=== PATIENT | male | born 1985 | race Caucasian/White ===

== ENCOUNTER 2016-07-26 08:18 | Emergency (ER) | payer OTHER ==
[~2016-07-26] VITALS: Ht 160 cm; Wt 67.6 kg
[~2016-07-26 08:18] MED LIST: OMEP20CA9 PO
[2016-07-26 08:24] VITALS: Ht 160 cm; Wt 67.6 kg
--- NOTE | 2016-07-26 09:41 | RADRPT ---
PROCEDURE: XR Left Ankle CLINICAL INDICATION: Fall TECHNIQUE: Standard 3 view radiographs were submitted. COMPARISON: None FINDINGS: Osseous structures: Well mineralized and intact with no fracture or destructive process identified. Joint spaces: Well maintained with no significant erosions or spurring evident. Soft tissues: Appear unremarkable. IMPRESSION: Unremarkable left ankle. Physician Danica Date Time Electronically viewed and signed by Trace Sandoval Physician on 07/26/2016 09:40 RH/
--- NOTE | 2016-07-26 09:41 | RADRPT ---
PROCEDURE: XR Left Tibia-Fibula CLINICAL INDICATION: Fall TECHNIQUE: AP and lateral radiographs were submitted COMPARISON: None FINDINGS: Osseous structures: appear well mineralized and intact with no fracture or destructive process iden tified. Joint spaces: are well maintained, with no significant spurring, erosion or joint effusion evident. Soft tissues: appear unremarkable. IMPRESSION: Unremarkable left tibia-fibula study. Physician Danica Date Time Electronically viewed and signed by Trace Sandoval Physician on 07/26/2016 09:40 RH/
[2016-07-26] MEDS ORDERED: IBUP-1542 PO (09:54)
--- NOTE | 2016-07-26 10:05 | ERD ---
ER Documentation Chief Complaint Date/Time DATE: 07/26/16 TIME: 10:02 Chief Complaint LEFT ANKLE PAIN HPI This is a 30 year old male that presents to the ER with left lower leg pain after he got his leg stuck between a bleacher and fell forward. Patient states that this happened 2 days ago. He has been trying ice and he is disrupted however the pain is severe. He has not taken any medication. Patient denies any numbness or tingling. Pain is severe and constant. It is located directly above his ankle. ROS 12 point review of systems was done, all negative except per HPI. Medications Home Meds Active Scripts Ibuprofen* (Motrin*) 600 Mg Tab, 600 MG PO Q6, #30 TAB Prov:GRODON KRISHNA 07/26/16 Omeprazole* (Prilosec*) 20 Mg Capsule., 20 MG PO DAILY, #30 CAP Prov:EDITH VALVERDE PA-C 03/02/15 PMhx/Soc Medical and Surgical Hx: pt denies Medical Hx, pt denies Surgical Hx Hx Alcohol Use: Yes Hx Substance Use: Yes Hx Tobacco Use: No Smoking Status: Never smoker Physical Exam Vitals Vital Signs Date Time Temp Pulse Resp B/P Pulse Ox O2 Delivery O2 Flow Rate FiO2 07/26/16 08:24 98.1 86 18 132/76 99 Physical Exam GENERAL: The patient is well developed and appropriate for usual state of health , in no apparent distress. HEENT: Atraumatic. CHEST: Clear to auscultation bilaterally. There are no rales, wheezes or rhonchi. HEART: Regular rate and rhythm. No murmurs, clicks, rubs or gallops. EXTREMITIES: he is tender to palpation along distal tibia there is an area of ecchymosis at the distal tibia. It is not tender to palpation over the lateral and medial malleolus. Patient denies any foot pain and is not tender to palpation anywhere along the foot. Tarsal twist tests. +2 pulses but is warm to the touch. NEURO: Alert and oriented. SKIN: There is no apparent rash or petechia. The skin is warm and dry. Procedures/MDM This is a 30-year-old male presents to the ER with left leg pain. At this time there is no evidence of fractures or dislocations. Likely contusion. The patient will be sent with ibuprofen. Patient is neurovascularly intact and has normal range of motion of his leg. I doubt osteomyelitis or compartment syndrome. She is afebrile and well-appearing. He needs to follow-up with his primary care doctor within 1-2 days or return to ER sooner if symptoms worsen. My medical decision making was shared with the patient he understands and agrees with plan. Departure Diagnosis: Primary Impression: Ankle pain Condition: Stable Patient Instructions: Sprain, Ankle, With X-Ray Additional Instructions: Call your primary care doctor TOMORROW for an appointment during the next 1-2 days.See the doctor sooner or return here if your condition worsens before your appointment time. GORDON KRISHNA Jul 26, 2016 10:05
== END 2016-07-26 10:25 | disposition home or self-care (01) ==
LOC: FTE 08:18
DX: S99.912A Unspecified injury of left ankle, initial encounter (principal); W18.09XA Striking against other object with subsequent fall, initial encounter; Y92.9 Unspecified place or not applicable
CPT/HCPCS: 73590; 73610

== ENCOUNTER 2017-06-28 07:00 | Emergency (ER) | END 2017-06-28 10:30 | disposition home or self-care (01) ==